=== PATIENT | female | born 1970 | race Caucasian/White ===

== ENCOUNTER 2020-12-21 21:37 | Emergency (ER) | payer BC, OTHER ==
[~2020-12-21] VITALS: Ht 167.6 cm; Wt 65.9 kg
[2020-12-21] MEDS ORDERED: TETanus/Pertussis (Acell)/Diphther VAC/PF (Tdap-Adult) 0.5ml syringe IMVAC ONE (22:50)
[2020-12-21] MEDS ORDERED: LIDOcaine 1% 30ml preserv. free vial IJ ONE (23:35)
[2020-12-21] MEDS ORDERED: acetaminophen 325mg tablet PO ONE (23:55)
[2020-12-22] MEDS ORDERED: AMOX-117 PO (00:41)
[2020-12-22 01:41] VITALS: BP 132/68
== END 2020-12-22 01:47 | disposition home or self-care (01) ==
LOC: ER 21:38
DX: S61.214A Laceration without foreign body of right ring finger without damage to nail, initial encounter (principal); S61.216A Laceration without foreign body of right little finger without damage to nail, initial encounter; Z20.3 Contact with and (suspected) exposure to rabies; W54.0XXA Bitten by dog, initial encounter; Y93.89 Activity, other specified; Y92.89 Other specified places as the place of occurrence of the external cause; Y99.8 Other external cause status
CPT/HCPCS: 12004; 73130; 90471; 90715; 99283